=== PATIENT | female | born 2000 | race American Indian/Alaskan Native ===

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

== ENCOUNTER 2022-07-31 21:32 | Emergency (ER) | payer MEDICAID ==
[2022-07-31] MEDS ORDERED: Sodium Chloride 0.9% 10 ML Syringe FLUSH PRN (21:52)
[2022-07-31 22:31] LABS: ANION GAP 11.5 mEq/L (7-13); CHLORIDE,CL 103 mmol/L (98-107); SODIUM,NA 138 mmol/L (136-145)
[2022-07-31 22:34] LABS: ESTIMATED GFR 132 mL/min (>=60)
[2022-08-01 00:08] VITALS: BP 98/58; PULSE 75
== END 2022-08-01 00:08 | disposition home or self-care (01) ==
LOC: DL.ED 21:32
DX: O20.9 Hemorrhage in early pregnancy, unspecified (principal); Z3A.01 Less than 8 weeks gestation of pregnancy
CPT/HCPCS: 36415; 76815; 80053; 84702; 85025; 86900; 86901; 99284

== ENCOUNTER 2023-09-28 23:23 | Emergency (ER) | payer MEDICAID ==
[2023-09-28 23:48] VITALS: BP 117/78; PULSE 92
== END 2023-09-29 00:10 | disposition home or self-care (01) ==
LOC: DL.ED 23:23
DX: T83.9XXA Unspecified complication of genitourinary prosthetic device, implant and graft, initial encounter (principal); R10.2 Pelvic and perineal pain; Z86.16 Personal history of COVID-19
CPT/HCPCS: 99283

== ENCOUNTER 2023-12-27 21:50 | Emergency (ER) | payer MEDICAID ==
[2023-12-27 22:37] VITALS: BP 130/88; PULSE 88
== END 2023-12-27 23:29 | disposition left against medical advice (07) ==
LOC: DL.ED 21:50
DX: Z53.21 Procedure and treatment not carried out due to patient leaving prior to being seen by health care provider (principal)
CPT/HCPCS: 87081; 87430